=== PATIENT | male | born 1990 | race Caucasian/White ===

== ENCOUNTER 2017-07-19 13:11 | Emergency (ER) | payer OTHER ==
[2017-07-19 13:26] VITALS: RESP 18
--- NOTE | 2017-07-19 14:12 | ED ---
General Adult HPI - General Chief complaint: Extremity Injury, Upper Stated complaint: Arm Pain Time Seen by Provider: 07/19/17 13:52 Source: patient, RN notes reviewed Mode of arrival: ambulatory Limitations: no limitations - History of Present Illness Initial comments: This is a 27-year-old male who presents to the emergency department with chief complaint of right upper extremity pain. Patient reports he was last seen by [facility] 2 days ago was diagnosed with a musculoskeletal strain. The ER doctor recommended [id number] Tylenol for pain. Patient presents today stating that he still experiencing the right extremity pain that started at distal right forearm and progressed to his right hand as well as up to his right shoulder. He states that there is pain with movement of his thumb. He cannot pinpoint the exact location of pain, just reports that it is generalized in his entire upper extremity. He denies any specific injury or trauma. Denies fever, chills, chest pain, shortness of breath, abdominal pain, nausea or vomiting, constipation or diarrhea, dysuria or hematuria, numbness or tingling, headache or vision changes. - Related Data Allergies Allergy/AdvReac Type Severity Reaction Status Date / Time No Known Allergies Allergy Verified 07/19/17 13:26 Review of Systems ROS Statement: Those systems with pertinent positive or pertinent negative responses have been documented in the HPI. ROS Other: All systems not noted in ROS Statement are negative. Past Medical History Additional Past Medical History / Comment(s): IBS History of Any Multi-Drug Resistant Organisms: None Reported Past Surgical History: Appendectomy Past Psychological History: No Psychological Hx Reported Smoking Status: Current every day smoker Past Alcohol Use History: None Reported Past Drug Use History: None Reported General Exam - General Exam Comments Initial Comments: General: Awake and alert, well-developed; in no apparent distress. HEENT: Head atraumatic, normocephalic. Pupils are equal, round and reactive to light. Extraocular movements intact. Neck: Supple. Normal ROM. Cardiovascular: Regular rate and rhythm. No murmurs, rubs or gallops. Chest symmetrical. Respiratory: Lungs clear to auscultation bilaterally. No wheezes, rales or rhonchi. Normal respiratory effort with no use of accessory muscles. Musculoskeletal: Mild tenderness on palpation of right dorsal forearm. Very mild swelling of right dorsal forearm. No ecchymosis, erythema or discoloration. Radial pulses 2+ equal and palpable bilaterally. Normal ROM and intact sensation of right upper extremity. Skin: [place], warm and dry without rashes or lesions. Neurological: Alert and oriented x3. CN II-XII grossly intact. Speech is fluent and answers are appropriate. No focal neuro deficits. Psychiatric: Normal mood and affect. No overt signs of depression or anxiety noted. Limitations: no limitations Course Vital Signs 07/19/17 13:23 Temperature 98.3 F Pulse Rate 94 Respiratory 18 Rate Blood Pressure 131/69 O2 Sat by Pulse 98 Oximetry Medical Decision Making - Medical Decision Making This is a 27-year-old male who presents with complaint of right wrist and forearm pain. Patient was seen 2 days ago at [facility]. X-ray results were obtained from [facility]. X-ray of right hand revealed mild subluxation at the first metacarpal phalangeal joint space. No acute fractures. X-ray of the right forearm revealed no acute osseous abnormalities. this case was discussed with attending physician, Dr. Chan. Patient will be discharged home with a referral to orthopedics for follow up and further evaluation. Patient is in agreement to the plan and voices understanding. All questions were answered. Disposition Clinical Impression: Right forearm pain Disposition: HOME SELF-CARE Condition: Good Instructions: Arm Pain (ED) Additional Instructions: Please follow up with Dr. Hernandez, orthopedics within 1-2 days. Please take medications as prescribed. Please follow up with primary care provider within 1- 2 days. Return to emergency department if symptoms should worsen or any concerns arise. Referrals: None,Stated [Primary Care Provider] - 1-2 days Ronald Hernandez MD [STAFF PHYSICIAN] - 1-2 days Time of Disposition: 14:33
[2017-07-19 14:49] VITALS: BP 128/82; PULSE 84; TEMP 98
== END 2017-07-19 14:45 | disposition home or self-care (01) ==
LOC: EC 13:11
DX: M79.631 Pain in right forearm (principal); F17.200 Nicotine dependence, unspecified, uncomplicated
CPT/HCPCS: 99283

== ENCOUNTER 2017-12-07 12:14 | Emergency (ER) | payer OTHER ==
[2017-12-07 12:24] VITALS: BP 139/72; PULSE 76; RESP 17; TEMP 97.1
--- NOTE | 2017-12-07 12:35 | ED ---
ENT HPI - General Chief complaint: Dental/Oral Stated complaint: dental pain Time Seen by Provider: 12/07/17 12:25 Source: patient, RN notes reviewed Mode of arrival: ambulatory Limitations: no limitations - History of Present Illness Initial comments: This is a 27-year-old male who presents to the emergency department with chief complaint of dental pain. Patient states that for the past one week he has been experiencing right lower dental pain. He states that the pain has gotten worse over the past 2-3 days. Denies any drainage or bleeding. Denies any radiation to the neck or ears. Patient states that the same thing happened 2-3 months ago and he was treated with antibiotics and ibuprofen. He states that he does not have insurance so has not followed up with a dentist. Denies any fevers or chills, shortness of breath or chest pain, abdominal pain, nausea or vomiting. - Related Data Previous Rx's Medication Instructions Recorded Ibuprofen 600 mg PO Q6HR #30 tablet 12/07/17 Penicillin V Potassium [Pen Vee K] 500 mg PO QID 10 Days tab 12/07/17 Allergies Allergy/AdvReac Type Severity Reaction Status Date / Time No Known Allergies Allergy Verified 12/07/17 12:21 Review of Systems ROS Statement: Those systems with pertinent positive or pertinent negative responses have been documented in the HPI. ROS Other: All systems not noted in ROS Statement are negative. Past Medical History Additional Past Medical History / Comment(s): IBS History of Any Multi-Drug Resistant Organisms: None Reported Past Surgical History: Appendectomy Past Psychological History: No Psychological Hx Reported Smoking Status: Current every day smoker Past Alcohol Use History: None Reported Past Drug Use History: None Reported General Exam - General Exam Comments Initial Comments: General: Awake and alert, well-developed; in no apparent distress. Afebrile. HEENT: Head atraumatic, normocephalic. Pupils are equal, round and reactive to light. Extraocular movements intact. Oropharynx moist without erythema or exudate. Tenderness on palpation of tooth #31. Teeth #28 to #31 are noted to have dental caries. No masses or areas of fluctuance noted at gumline. No tenderness on palpation of the jawline. Bilateral TMs are pearly without effusion. Neck: Supple. Normal ROM. Cardiovascular: Regular rate and rhythm. No murmurs, rubs or gallops. Chest symmetrical. Respiratory: Lungs clear to auscultation bilaterally. No wheezes, rales or rhonchi. Normal respiratory effort with no use of accessory muscles. Musculoskeletal: Normal ROM, no tenderness bilateral upper and lower extremities. Ambulating normally. Skin: [place], warm and dry without rashes or lesions. Neurological: Alert and oriented x3. CN II-XII grossly intact. Speech is fluent and answers are appropriate. No focal neuro deficits. Psychiatric: Normal mood and affect. No overt signs of depression or anxiety noted. Limitations: no limitations Course Vital Signs 12/07/17 12:22 Temperature 97.1 F L Pulse Rate 76 Respiratory 17 Rate Blood Pressure 139/72 O2 Sat by Pulse 98 Oximetry Medical Decision Making - Medical Decision Making This is a 27-year-old male who presents to the emergency department with chief complaint of dental pain. There is tenderness on palpation of tooth #31 and is noted to have a cavity. Patient will be started on ibuprofen and antibiotics. He will be given referral to dental clinic. Patient's vital signs are stable and he is in no acute distress. He will be discharged home. He is in agreement with plan and voices understanding. All questions were answered. Disposition Clinical Impression: Dental caries Disposition: HOME SELF-CARE Condition: Good Instructions: Dental Caries (ED) Additional Instructions: Please take medications as prescribed. Please follow up with primary care provider within 1-2 days. Return to emergency department if symptoms should worsen or any concerns arise. Please follow up with the [facility]. [address] [place] [address]. Phone number for new patients or for existing patients. Prescriptions: Ibuprofen 600 mg PO Q6HR #30 tablet Penicillin V Potassium [Pen Vee K] 500 mg PO QID 10 Days tab Referrals: None,Stated [Primary Care Provider] - 1-2 days Time of Disposition: 12:34
== END 2017-12-07 12:46 | disposition home or self-care (01) ==
LOC: EC 12:14
DX: K02.9 Dental caries, unspecified (principal); F17.200 Nicotine dependence, unspecified, uncomplicated
CPT/HCPCS: 99282

== ENCOUNTER 2021-08-13 18:41 | Emergency (ER) | payer OTHER ==
[2021-08-13] MEDS ORDERED: SODIUM CHLORIDE 0.9% 1,000 ML IV STA (19:00)
[2021-08-13] MEDS ORDERED: ACETAMINOPHEN TAB 325 MG TAB PO STA (19:01)
[2021-08-13] MEDS ORDERED: IBUPROFEN 800 MG TAB PO STA (19:02)
[2021-08-13] MEDS ORDERED: DEXAMETHASONE SOD PHOSPHATE 10 MG/ML 1 ML VIAL IVP STA (19:02)
[2021-08-13 19:41] LABS: ALT 46 U/L (4-49); AST 55 U/L (17-59); African American GFR (CKD) >90 (>60 ml/min/1.73 sqM); Albumin 3.6 g/dL (3.5-5.0); Alkaline Phosphatase 46 U/L (38-126); Anion Gap 8 mmol/L; Blood Urea Nitrogen 13 mg/dL (9-20); Calcium 8.3 mg/dL (8.4-10.2); Carbon Dioxide 24 mmol/L (22-30); Chloride 98 mmol/L (98-107); Glucose 127 mg/dL (74-99); Non-African American GFR(CKD) >90 (>60 ml/min/1.73 sqM); Potassium 3.9 mmol/L (3.5-5.1); Sodium 130 mmol/L (137-145); Total Bilirubin 0.5 mg/dL (0.2-1.3); Total Protein 6.4 g/dL (6.3-8.2)
[2021-08-13] MEDS ORDERED: ONDANSETRON 4 MG/2 ML VIAL IVP STA (19:50)
[2021-08-13 19:58] LABS: Basophils % (A) 1 %; Eosinophils % (A) 0 %; HCT 41.5 % (39.0-53.0); HGB 14.8 gm/dL (13.0-17.5); Hyperchromasia Slight; Lymphocytes # (A) 1.7 k/uL (1.0-4.8); Lymphocytes % (A) 32 %; MCH 31.5 pg (25.0-35.0); MCHC 35.5 g/dL (31.0-37.0); MCV 88.7 fL (80.0-100.0); Mean Platelet Volume 8.2; Monocytes # (A) 0.4 k/uL (0-1.0); Monocytes % (A) 7 %; Neutrophils # (A) 3.1 k/uL (1.3-7.7); Neutrophils % (A) 58 %; Platelet Count 154 k/uL (150-450); RBC 4.68 m/uL (4.30-5.90); RDW 12.8 % (11.5-15.5); WBC 5.3 k/uL (3.8-10.6)
--- NOTE | 2021-08-13 20:06 | XR ---
EXAMINATION TYPE: XR chest 2V DATE OF EXAM: 08/13/2021 CLINICAL HISTORY: difficulty breathing. TECHNIQUE: Frontal and lateral view of the chest. COMPARISON: None FINDINGS: The cardiomediastinal silhouette is within normal limits for size. Pulmonary vasculature i s normal. Moderate multifocal patchy airspace opacities of the bilateral lungs. No pleural effusion. No pneumothorax seen. No acute displaced osseous fracture. IMPRESSION: Moderate multifocal patchy airspace opacities bilaterally, characteristic of Covid 19 pneumonia.
[2021-08-13 20:13] LABS: Partial Thromboplastin Time 25.8 sec (22.0-30.0); Prothrombin Time 10.5 sec (9.0-12.0)
[2021-08-13] MEDS ORDERED: SODIUM CHLORIDE 0.9% 50 ML IVPB ONE (20:15)
--- NOTE | 2021-08-13 20:28 | ED ---
SOB HPI - General Chief Complaint: Shortness of Breath Stated Complaint: SOB Time Seen by Provider: 08/13/21 18:56 Source: patient, EMS, RN notes reviewed Mode of arrival: EMS Limitations: no limitations - History of Present Illness Initial Comments: Patient is a 31-year-old male that presents to the emergency department via EMS for increased shortness of breath. Patient notes he is unvaccinated for Covid and does not know if he is been running a sick contacts. Patient notes that he's been having symptoms for the past 5-7 days with no relief. He denied taking any Tylenol or Motrin. Patient denied any history of asthma or COPD. Patient didn't appear to be in moderate amounts of distress while lying in bed. He was otherwise a pleasant individual. He denied chest pain headache nausea vomiting diarrhea constipation fever fatigue chills. - Related Data Home Medications Medication Instructions Recorded Confirmed No Known Home Medications 08/13/21 08/13/21 Allergies Allergy/AdvReac Type Severity Reaction Status Date / Time No Known Allergies Allergy Verified 08/13/21 19:53 Review of Systems ROS Statement: Those systems with pertinent positive or pertinent negative responses have been documented in the HPI. ROS Other: All systems not noted in ROS Statement are negative. Past Medical History Additional Past Medical History / Comment(s): IBS History of Any Multi-Drug Resistant Organisms: None Reported Past Surgical History: Appendectomy Past Psychological History: No Psychological Hx Reported Smoking Status: Vaper Past Alcohol Use History: None Reported Past Drug Use History: None Reported General Exam Limitations: no limitations General appearance: alert, in no apparent distress, obese Head exam: Present: atraumatic, normocephalic, normal inspection Eye exam: Present: normal appearance, PERRL, EOMI. Absent: scleral icterus, conjunctival injection, periorbital swelling ENT exam: Present: normal exam, mucous membranes moist Neck exam: Present: normal inspection Respiratory exam: Present: normal lung sounds bilaterally. Absent: respiratory distress, wheezes, rales, rhonchi, stridor Cardiovascular Exam: Present: regular rate, normal rhythm, normal heart sounds. Absent: systolic murmur, diastolic murmur, rubs, gallop, clicks Extremities exam: Present: normal inspection, full ROM, normal capillary refill. Absent: tenderness, pedal edema, joint swelling, calf tenderness Neurological exam: Present: alert, oriented X3 Psychiatric exam: Present: normal affect, normal mood Skin exam: Present: warm, dry, intact, normal color. Absent: rash Course Vital Signs 08/13/21 08/13/21 18:44 18:58 Temperature 102.2 F H Pulse Rate 98 Respiratory 24 24 Rate Blood Pressure 116/70 O2 Sat by Pulse 94 L Oximetry Medical Decision Making - Medical Decision Making 31-year-old male complaining of shortness of breath and upper respiratory tract symptoms for the past 5-7 days. Labs, EKG, vehicle monitor technician, chest x-ray, Covid test, 650 mg of Tylenol, 800 mg of Motrin, 10 mg of Decadron ordered. Covid test positive. Labs unremarkable. Chest x-ray showed bilateral multifocal infiltrates consistent with Covid pneumonia. Patient does meet criteria for monoclonal antibody infusion and wishes to undergo infusion. Patient is agreeable discharge home after infusion. Case discussed with Dr. Greer, patient can discharge home. - Lab Data Result diagrams: 08/13/21 19:11 08/13/21 19:11 Lab Results 08/13/21 08/13/21 08/13/21 Range/Units 19:11 19:11 19:11 WBC 5.3 (3.8-10.6) k/uL RBC 4.68 (4.30-5.90) m/uL Hgb 14.8 (13.0-17.5) gm/dL Hct 41.5 (39.0-53.0) % MCV 88.7 (80.0-100.0) fL MCH 31.5 (25.0-35.0) pg MCHC 35.5 (31.0-37.0) g/dL RDW 12.8 (11.5-15.5) % Plt Count 154 (150-450) k/uL MPV 8.2 Neutrophils % 58 % Lymphocytes % 32 % Monocytes % 7 % Eosinophils % 0 % Basophils % 1 % Neutrophils # 3.1 (1.3-7.7) k/uL Lymphocytes # 1.7 (1.0-4.8) k/uL Monocytes # 0.4 (0-1.0) k/uL Eosinophils # 0.0 (0-0.7) k/uL Basophils # 0.0 (0-0.2) k/uL Hyperchromasia Slight PT 10.5 (9.0-12.0) sec INR 1.0 (<1.2) APTT 25.8 (22.0-30.0) sec Sodium 130 L (137-145) mmol/L Potassium 3.9 (3.5-5.1) mmol/L Chloride 98 (98-107) mmol/L Carbon Dioxide 24 (22-30) mmol/L Anion Gap 8 mmol/L BUN 13 (9-20) mg/dL Creatinine 0.82 (0.66-1.25) mg/dL Est GFR (CKD-EPI)AfAm >90 (>60 ml/min/1.73 sqM) Est GFR (CKD-EPI)NonAf >90 (>60 ml/min/1.73 sqM) Glucose 127 H (74-99) mg/dL Plasma Lactic Acid Reji (0.7-2.0) mmol/L Calcium 8.3 L (8.4-10.2) mg/dL Total Bilirubin 0.5 (0.2-1.3) mg/dL AST 55 (17-59) U/L ALT 46 (4-49) U/L Alkaline Phosphatase 46 (38-126) U/L Troponin I (0.000-0.034) ng/mL Total Protein 6.4 (6.3-8.2) g/dL Albumin 3.6 (3.5-5.0) g/dL Coronavirus (PCR) (Not Detectd) 08/13/21 08/13/21 08/13/21 Range/Units 19:11 19:11 19:11 WBC (3.8-10.6) k/uL RBC (4.30-5.90) m/uL Hgb (13.0-17.5) gm/dL Hct (39.0-53.0) % MCV (80.0-100.0) fL MCH (25.0-35.0) pg MCHC (31.0-37.0) g/dL RDW (11.5-15.5) % Plt Count (150-450) k/uL MPV Neutrophils % % Lymphocytes % % Monocytes % % Eosinophils % % Basophils % % Neutrophils # (1.3-7.7) k/uL Lymphocytes # (1.0-4.8) k/uL Monocytes # (0-1.0) k/uL Eosinophils # (0-0.7) k/uL Basophils # (0-0.2) k/uL Hyperchromasia PT (9.0-12.0) sec INR (<1.2) APTT (22.0-30.0) sec Sodium (137-145) mmol/L Potassium (3.5-5.1) mmol/L Chloride (98-107) mmol/L Carbon Dioxide (22-30) mmol/L Anion Gap mmol/L BUN (9-20) mg/dL Creatinine (0.66-1.25) mg/dL Est GFR (CKD-EPI)AfAm (>60 ml/min/1.73 sqM) Est GFR (CKD-EPI)NonAf (>60 ml/min/1.73 sqM) Glucose (74-99) mg/dL Plasma Lactic Acid Reji 1.6 (0.7-2.0) mmol/L Calcium (8.4-10.2) mg/dL Total Bilirubin (0.2-1.3) mg/dL AST (17-59) U/L ALT (4-49) U/L Alkaline Phosphatase (38-126) U/L Troponin I <0.012 (0.000-0.034) ng/mL Total Protein (6.3-8.2) g/dL Albumin (3.5-5.0) g/dL Coronavirus (PCR) Detected A (Not Detectd) - EKG Data -: EKG Interpreted by [place] EKG shows normal: sinus rhythm Rate: normal EKG Comments: Ventricular rate 88 bpm, MS interval 158 ms, QRS duration 92 ms, QTC 425 ms, PRT axes 10/96/5. Normal sinus rhythm, rightward axis, incomplete right bundle branch block, borderline ECG. - Radiology Data Radiology results: report reviewed, image reviewed Chest x-ray:Moderate multifocal patchy airspace opacities bilaterally characteristic of COVID-19 pneumonia. Disposition Clinical Impression: Pneumonia due to COVID-19 virus Disposition: HOME SELF-CARE Condition: Stable Instructions (If sedation given, give patient instructions): Coronavirus Disease 2019 (COVID-19) Additional Instructions: Please return to the Emergency Department if symptoms worsen or any other concerns. Quarantine per CDC guidelines. Follow-up with primary care in 1-2 days. Take Tylenol and Motrin alternating every 3 hours for fever. Avoid any strenuous activity or exercise. Is patient prescribed a controlled substance at d/c from ED?: No Referrals: Rusty Mclain PAC [Primary Care Provider] - 1-2 days Time of Disposition: 20:28
[2021-08-13] MEDS ORDERED: BAMLANIVIMAB (EUA) 700 MG, ETESEVIMAB (EUA) 1,400 MG in SODIUM CHLORIDE 0.9% 50 ML IVPB ONE (20:30)
[2021-08-13 21:51] VITALS: BP 133/72; PULSE 72; RESP 17; TEMP 100.3
== END 2021-08-13 21:51 | disposition home or self-care (01) ==
LOC: EC 18:41
DX: U07.1 COVID-19 (principal); J12.82 Pneumonia due to coronavirus disease 2019; F17.290 Nicotine dependence, other tobacco product, uncomplicated; Z90.49 Acquired absence of other specified parts of digestive tract
CPT/HCPCS: 99285; 96374; 96375; 96361; 36415; 93005; 80053; 83605; 84484; 85025; 85610; 85730; 87635; 71046; J1100; J2405; J3490

== ENCOUNTER 2024-05-08 21:19 | Emergency (ER) | payer OTHER ==
[2024-05-08] MEDS ORDERED: SODIUM CHLORIDE 0.9% 1,000 ML BAG ONE (23:10)
[2024-05-09] MEDS ORDERED: cefTRIAXone IN SWFI 1,000 MG/10 ML SYRINGE IVP ONE (01:19)
== END 2024-05-09 01:33 | disposition home or self-care (01) ==
LOC: EC 21:19
CPT/HCPCS: 96372; 96374; 99283